=== PATIENT | female | born 1965 | race Caucasian/White ===

== ENCOUNTER 2021-02-01 03:13 | Emergency (ER) | payer BC ==
[~2021-02-01 03:13] MED LIST: K-DUR TAB 20 M20 MEQ PO; LOMOTIL 2.5-0.1 EACH PO; LOPRESSOR 25 MG25 MG PO; MACROBID 100 M100 MG PO; PRILOSEC OTC20 MG PO; PYRIDIUM200 MG PO; SYNTHROID100 MCG PO; ZOFRAN ODT 4 MG4 MG SL
[2021-02-01 04:13] LABS: HEMOGLOBIN 13.2 gm/dl (12.3-15.3); RED BLOOD COUNT 4.75 M/UL (4.00-5.10)
[2021-02-01] MEDS ORDERED: LODINE CAP 300300 MG PO (05:37)
[2021-02-01] MEDS ORDERED: DOXYCYCLINE MO100 MG PO (05:37)
[2021-02-01] MEDS ORDERED: ZOFRAN ODT 4 MG4 MG PO (05:37)
== END 2021-02-01 05:57 | disposition home or self-care (01) ==
LOC: ER1 03:13
PROVIDERS: Physician Assistant
DX: N39.0 Urinary tract infection, site not specified (principal); R31.9 Hematuria, unspecified; R30.0 Dysuria; I10 Essential (primary) hypertension; Z90.710 Acquired absence of both cervix and uterus; Z88.0 Allergy status to penicillin; Z88.8 Allergy status to other drugs, medicaments and biological substances
CPT/HCPCS: 80053; 81001; 85025; 87077; 87086; 87186; 96374; 99284; J1885

== ENCOUNTER → 2021-03-07 | Outpatient (CLI) | payer BC ==
[~2021-03-07] MED LIST changes: +DOXYCYCLINE MO100 MG PO; +LODINE CAP 300300 MG PO; +ZOFRAN ODT 4 MG4 MG PO
== END ==
LOC: KOH-I 13:25
DX: M54.50 Low back pain, unspecified (principal); M25.551 Pain in right hip; M79.672 Pain in left foot
CPT/HCPCS: 72100; 73502; 73630

== ENCOUNTER → 2021-11-11 | Outpatient (CLI) | payer BC | LOC: EXRD 11-07 15:00 | DX: N28.1 Cyst of kidney, acquired (principal) | CPT/HCPCS: 76775 ==